=== PATIENT | male | born 1945 | race Caucasian/White ===

== ENCOUNTER → 2016-09-15 | Outpatient (CLI) | payer OTHER, BC ==
[~2016-09-15] MED LIST: ASPI-435 PO; ATOR80TA PO; DICY10CA12 PO; FENO145T26 PO; FEXO1TAB46 PO; LISI-725 PO; METO50TA7 PO; PANT40TA PO; PROB1TAB16 PO; TAMS0.4C38 PO; WARF2TAB PO
--- NOTE | 2016-09-15 15:19 | DIAGNOSTIC IMAGING REPORT ---
ULTRASOUND LEFT VENOUS DOPP LOWER EXT UNILAT CLINICAL HISTORY: L CALF PAIN/SWELLING COMPARISON STUDY: No previous studies for comparison. FINDINGS: Real-time and color flow Doppler imaging were performed. Flow was seen within the femoral, popliteal and calf veins with no intraluminal thrombus demonstrated. The saphenous vein is patent. There is a large complex cystic lesion extending from the popliteal regions the calf measuring 19 cm in length. This appears intramuscular and likely represents a hematoma from a muscle tear. IMPRESSION: 1. No evidence of left lower extremity DVT 2. 19 cm complex cystic lesion within the calf, likely representing a hematoma secondary to a muscle tear. Clinical correlation and follow-up is recommended. An MRI could be obtained for further evaluation as deemed clinically indicated. Electronically signed by: Hu Hirsch M.D. 09/15/2016 3:17 PM Dictated Date/Time: 09/15/2016 3:15 PM
== END | disposition home or self-care (01) ==
LOC: C.ULTRBC 14:43
PROVIDERS: ATTEND Orthopaedic Surgery
DX: M79.605 Pain in left leg (principal); M79.89 Other specified soft tissue disorders; R93.7 Abnormal findings on diagnostic imaging of other parts of musculoskeletal system